=== PATIENT | female | born 1935 | race Caucasian/White ===

== ENCOUNTER 2018-01-11 08:28 | Day surgery (SDC) | payer MEDICARE, OTHER ==
[~2018-01-11] VITALS: Ht 157.5 cm; Wt 66.4 kg
[~2018-01-11 08:28] MED LIST: AMLO-310 PO; ANUSHCS PR; ASPI81 PO; CALC-1038 PO; OMEG-50 PO
[2018-01-11] MEDS ORDERED: SODIUM CHLORIDE 0.9% 1,000 ML IV ONE ×2 (08:49→09:00)
[2018-01-11] MEDS ORDERED: PROPOFOL 1% 20 ML VIAL IVP ONE (12:00)
[2018-01-11] MEDS ORDERED: LIDOCAINE HCL/PF 2% 5 ML VIAL INJ ONE (12:00)
[2018-01-11] MEDS ORDERED: OXYGEN THERAPY IH SCH ×2 (20:00)
== END 2018-01-11 11:50 | disposition home or self-care (01) ==
LOC: SURGERY 08:28
PROVIDERS: ATTEND Specialist
DX: D12.2 Benign neoplasm of ascending colon (principal); D12.5 Benign neoplasm of sigmoid colon; K63.5 Polyp of colon; K57.30 Diverticulosis of large intestine without perforation or abscess without bleeding; K64.1 Second degree hemorrhoids; E78.00 Pure hypercholesterolemia, unspecified; I10 Essential (primary) hypertension; M19.90 Unspecified osteoarthritis, unspecified site; Z86.010 Personal history of colon polyps; Z79.82 Long term (current) use of aspirin; Z82.49 Family history of ischemic heart disease and other diseases of the circulatory system; Z90.710 Acquired absence of both cervix and uterus; Z98.890 Other specified postprocedural states; Z79.899 Other long term (current) drug therapy; Z83.3 Family history of diabetes mellitus
CPT/HCPCS: 45385; 88305; C1769; J2704; J3490; J7030